=== PATIENT | male | born 2000 | race Caucasian/White ===

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

== ENCOUNTER → 2021-11-17 | Outpatient (CLI) | payer BC, OTHER ==
--- NOTE | 2021-11-17 10:10 | Diagnostic Imaging Report ---
PROCEDURE: US Hepatic (Liver). TECHNIQUE: Multiple real-time grayscale images were obtained over the right upper quadrant in various projections. INDICATION: Elevated liver function tests. Liver is normal in size 16 cm. Portal vein is patent and shows normal direction of flow. No discrete liver mass is detected. Gallbladder is without stones. There appears be a small amount of sludge present. No wall thickening is seen. There is no biliary duct dilatation. Pancreas unremarkable. Aorta is nonaneurysmal. IVC is patent. Right kidney is without calculi or hydronephrosis. There is no ascites. IMPRESSION: Minimal gallbladder sludge. The study is otherwise unremarkable. Dictated by: Dictated on workstation # [id number]
== END ==
LOC: RAD 07:30
PROVIDERS: ATTEND Internal Medicine
DX: R94.5 Abnormal results of liver function studies (principal)
CPT/HCPCS: 76705